=== PATIENT | female | born 1980 | race Caucasian/White ===

== ENCOUNTER 2017-05-11 18:12 | Emergency (ER) | payer BC, SELFPAY ==
[2017-05-11 18:18] VITALS: BP 118/79; PULSE 81; RESP 18; TEMP 36.5; O2SAT 95; BMI 66.7
--- NOTE | 2017-05-11 18:31 | CT_ITS ---
CT head/brain wo con : CT HEAD WITHOUT CONTRAST CT BONE WINDOWS Ordering Physician: Lizandro Navarro MD Patient Age: 37 years: Female HISTORY:Left arm weakness and tingling 1 hour. The T. PROCEDURE: Routine axial images through the head without contrast performed with brain and bone windows reviewed. CT BRAIN WITHOUT CONTRAST- No previous studies for comparison No acute intracranial findings. No hemorrhage or mass or subdural collection. The ventricles and basal cisterns appear satisfactory. Celeste and white matter patterns satisfactory. The posterior fossa appear satisfactory and unremarkable. CT BONE WINDOWS:The skull is intact. The visualized portions of the paranasal sinuses and mastoid air cells and middle ear in IACs are unremarkable. Critical result called to [facility] staff on 05/11/2017 6:48 PM. IMPRESSION: No acute intracranial findings. No significant intracranial findings.
--- NOTE | 2017-05-11 18:57 | HMH.EDNEU ---
ED Disposition Clinical Impression: Tingling of left upper extremity Disposition: Home, Self-Care Condition on Discharge: Fair Additional Instructions: 1- to see Angelo at 9:00 Am for a 2 d Echo with contrast study to r/o PFO. 2- see Dr Jonny cheng in AM for an outpatien tMRI. 3- take a daily 81mg aspirin. 4- return if needed for any new sx. Referrals: Jonny Cheng [Primary Care Provider] - - Critical Care Critical Care Time: No Attestation: On 05/11/17, the high probability of a clinically significant, sudden or life threatening deterioration of the following system(s) required my full and direct attention, intervention and personal management. The time I documented below is in addition to time spent performing reported procedures but includes the following listed in this critical care notation. Medical Decision Making - Medical Records Medical records reviewed: Yes: I reviewed the patient's medical records. Vital Signs: 05/11/17 18:18 Temperature 97.7 F Temperature Source Oral Pulse Rate [Right Radial] 81 Respiratory Rate 18 Blood Pressure [Right Arm] 118/79 Blood Pressure Mean [Right Arm] 92 Blood Pressure Source [Right Arm] Automatic Cuff Blood Pressure Position [Right Arm] Sitting 02 Sat by Pulse Oximetry 95 Oxygen Delivery Method Room Air - Lab Data Lab results reviewed: Yes: I reviewed the patient's lab results. Lab Results 05/11/17 19:20: WBC 9.1, RBC 4.87, Hgb 14.6, Hct 42.3, MCV 86.9, MCH 29.9, MCHC 34.4, RDW 12.1, Plt Count 323, MPV 6.9 L, Neut % (Auto) 74.5, Lymph % (Auto) 17.5, [place] % (Auto) 4.9, Eos % (Auto) 2.5, Baso % (Auto) 0.5, Neut # (Auto) 6.8, Lymph # (Auto) 1.6, [place] # (Auto) 0.5, Eos # (Auto) 0.2, Baso # (Auto) 0.0 05/11/17 19:20: Sodium 137, Potassium 3.9, Chloride 103, Carbon Dioxide 27, Anion Gap 10.9, BUN 15, Creatinine 0.69, Estimated Creat Clear 99, Estimated GFR 95, Est GFR ( Amer) 115, Glucose 110 H, Calcium 9.0, Total Bilirubin 0.3, AST 14 L, ALT 31, Alkaline Phosphatase 80, Total Creatine Kinase 65, CK-MB (CK-2) < 0.5, CK-MB (CK-2) Rel Index 0.8, Troponin I < 0.02, Total Protein 7.8, Albumin 4.1, Globulin 3.7 H, Albumin/Globulin Ratio 1.1, TSH 1.59 05/11/17 19:20: D-Dimer 115 Result diagrams: 05/11/17 19:20 05/11/17 19:20 Orders (Tests/Meds): ED MEDICATIONS Discontinued Medications Generic Name Dose Route Start Last Admin Trade Name Freq PRN Reason Stop Dose Admin Aspirin 325 mg 05/11/17 19:20 05/11/17 19:33 Aspirin Ec 325mg Tablet PO 05/11/17 19:21 325 mg ONCE ONE Administration ORDERS Category Date Time Status EKG Request [ECG Request by /Kiersten] Stat Y 05/11/17 19:05 Ordered - CT Data CT Scan: Head Time Received: 21:[address] Reviewed: Yes: I have viewed the radiologist's interpretation Preliminary Findings: Normal/NAD Findings Narrative: IMPRESSION: No acute intracranial findings. No significant intracranial findings. - ECG Data Tracing #1 Normal sinus rhythm 73/min normal P-wave T-wave and QRS complex no acute finding. ECG initial impression date: 05/11/17 ECG initial impression time: 19:04 - Rod Inquiry Pt receiving controlled substance: No Rod was queried for this patient: No Medical Decision Making Narrative: I had a extensive discussion with the patient and her about her history, examination, CT head, and laboratory findings. [address] Castillo from the [facility] about her symptoms. Although it seems to be more of a peripheral nerve symptoms but she recommended outpatient workup. [address] Em regarding PFO for 2D echo study, he advised that she can come at 9:00 in the morning and see his physician gift shop assistant 9 AM and obtain 2D echo. I spoke with the patient about the her need to be in charge of her health, she will contact her primary care physician Dr. Jonny Cheng and obtain a brain MRI, she would be here tomorrow at 9 AM for
--- NOTE | 2017-05-11 19:01 | ED_ITS ---
ED Disposition Clinical Impression: Tingling of left upper extremity Disposition: Home, Self-Care Condition on Discharge: Fair Additional Instructions: 1- to see Angelo at 9:00 Am for a 2 d Echo with contrast study to r/o PFO. 2- see Dr Jonny cheng in AM for an outpatien tMRI. 3- take a daily 81mg aspirin. 4- return if needed for any new sx. Referrals: Jonny Cheng [Primary Care Provider] - - Critical Care Critical Care Time: No Attestation: On 05/11/17, the high probability of a clinically significant, sudden or life threatening deterioration of the following system(s) required my full and direct attention, intervention and personal management. The time I documented below is in addition to time spent performing reported procedures but includes the following listed in this critical care notation. Medical Decision Making - Medical Records Medical records reviewed: Yes: I reviewed the patient's medical records. Vital Signs: 05/11/17 18:18 Temperature 97.7 F Temperature Source Oral Pulse Rate [Right Radial] 81 Respiratory Rate 18 Blood Pressure [Right Arm] 118/79 Blood Pressure Mean [Right Arm] 92 Blood Pressure Source [Right Arm] Automatic Cuff Blood Pressure Position [Right Arm] Sitting 02 Sat by Pulse Oximetry 95 Oxygen Delivery Method Room Air - Lab Data Lab results reviewed: Yes: I reviewed the patient's lab results. Lab Results 05/11/17 19:20: WBC 9.1, RBC 4.87, Hgb 14.6, Hct 42.3, MCV 86.9, MCH 29.9, MCHC 34.4, RDW 12.1, Plt Count 323, MPV 6.9 L, Neut % (Auto) 74.5, Lymph % (Auto) 17.5, [place] % (Auto) 4.9, Eos % (Auto) 2.5, Baso % (Auto) 0.5, Neut # (Auto) 6.8 , Lymph # (Auto) 1.6, [place] # (Auto) 0.5, Eos # (Auto) 0.2, Baso # (Auto) 0.0 05/11/17 19:20: Sodium 137, Potassium 3.9, Chloride 103, Carbon Dioxide 27, Anion Gap 10.9, BUN 15, Creatinine 0.69, Estimated Creat Clear 99, Estimated GFR 95, Est GFR ( Amer) 115, Glucose 110 H, Calcium 9.0, Total Bilirubin 0.3, AST 14 L, ALT 31, Alkaline Phosphatase 80, Total Creatine Kinase 65, CK-MB (CK-2) < 0.5, CK-MB (CK-2) Rel Index 0.8, Troponin I < 0.02, Total Protein 7.8, Albumin 4.1, Globulin 3.7 H, Albumin/Globulin Ratio 1.1, TSH 1.59 05/11/17 19:20: D-Dimer 115 Result diagrams: 05/11/17 19:20 05/11/17 19:20 Orders (Tests/Meds): ED MEDICATIONS Discontinued Medications Generic Name Dose Route Start Last Admin Trade Name Freq PRN Reason Stop Dose Admin Aspirin 325 mg 05/11/17 19:20 05/11/17 19:33 Aspirin Ec 325mg Tablet PO 05/11/17 19:21 325 mg ONCE ONE Administration ORDERS Category Date Time Status EKG Request [ECG Request by /Kiersten] Stat Y 05/11/17 19:05 Ordered - CT Data CT Scan: Head Time Received: 21:[address] Reviewed: Yes: I have viewed the radiologist's interpretation Preliminary Findings: Normal/NAD Findings Narrative: IMPRESSION: No acute intracranial findings. No significant intracranial findings. - ECG Data Tracing #1 Normal sinus rhythm 73/min normal P-wave T-wave and QRS complex no acute finding. ECG initial impression date: 05/11/17 ECG initial impression time: 19:04 - Rod Inquiry Pt receiving controlled substance: No Rod was queried for this patient: No Medical Decision Making Narrative: I had a extensive discussion wi
[2017-05-11 19:45] LABS: Basophils % 0.5 % (0.1-2.0); Eosinophils # 0.2 K/mm3 (0.0-0.4); Eosinophils % 2.5 % (0.1-12.0); Hematocrit 42.3 % (37.0-47.0); Hemoglobin 14.6 g/dL (12.2-16.2); Lymphocytes # 1.6 K/mm3 (0.7-4.5); Lymphocytes % 17.5 K/mm3 (10-50); Mean Corpuscular HGB Conc 34.4 g/dL (31.8-35.4); Mean Corpuscular Hemoglobin 29.9 pg (27.0-31.2); Mean Corpuscular Volume 86.9 fl (81-99); Mean Platelet Volume 6.9 fl (7.4-10.4); Monocytes # 0.5 K/mm3 (0.1-1.0); Monocytes % 4.9 % (1.7-9.3); Neutrophils # 6.8 K/mm3 (1.8-7.8); Neutrophils % 74.5 % (37.0-80.0); Platelet Count 323 K/mm3 (142-424); Red Blood Count 4.87 M/mm3 (4.20-5.40); Red Cell Distribution Width 12.1 % (11.5-17.5); White Blood Count 9.1 K/mm3 (4.8-10.8)
[2017-05-11 19:54] LABS: Alanine Aminotransferase 31 U/L (12-78); Albumin Level 4.1 gm/dL (3.4-5.0); Albumin/Globulin Ratio 1.1 (1.1-1.8); Alkaline Phosphatase 80 U/L (46-116); Anion Gap 10.9 mEq/L (5-15); Aspartate Amino Transferase 14 U/L (15-37); Bilirubin,Total 0.3 mg/dL (0.2-1.0); Blood Urea Nitrogen 15 mg/dL (7-18); Carbon Dioxide 27 mmol/L (21.0-32.0); Chloride 103 mmol/L (98-107); Creatine Kinase 65 U/L (26-192); Creatinine Clearance Estimated 99 mL/min (0-300); Creatinine,Serum 0.69 mg/dL (0.55-1.02); Estimated Glomerular Filt Rate 95 ml/min (>60); GFR (African American) 115 ML/MIN (>60); Globulin 3.7 gm/dl (1.3-3.2); Glucose 110 mg/dL (74-106); Potassium 3.9 mmoL/L (3.5-5.1); Sodium 137 mmol/L (136-145); Thyroid Stimulating Hormone 1.59 uIU/ml (0.358-3.740); Total Protein,Serum 7.8 gm/dL (6.4-8.2); Troponin I < 0.02 ng/ml (0.00-0.06)
[2017-05-11 19:56] LABS: CKMB Relative Index 0.8 U/L (0-4.0); Creatine Kinase MB < 0.5 mg/ml (0.0-3.6)
[2017-05-11 20:07] LABS: D-Dimer 115 (0-400)
[2017-05-11 21:37] VITALS: BP 130/74; PULSE 82; RESP 16; TEMP 37
== END 2017-05-11 21:37 | disposition home or self-care (01) ==
PROVIDERS: Emergency Provider Emergency Medicine; PCP Family Medicine
DX: R20.2 Paresthesia of skin (principal); R53.1 Weakness; Z88.0 Allergy status to penicillin
CPT/HCPCS: 36415; 70450; 80053; 82550; 82553; 84443; 84484; 85025; 85378; 93005; 93041; 99283

== ENCOUNTER → 2020-12-20 12:50 | Outpatient (CLI) | payer BC, SELFPAY ==
--- NOTE | 2020-12-20 12:53 | MM_ITS ---
PROCEDURE INFORMATION: Exam: MG Bilateral Screening 3D Mammography Exam date and time: 12/20/2020 12:53 PM Age: 40 years old Clinical indication: Encounter for screening mammogram for malignant neoplasm of breast TECHNIQUE: Imaging protocol: Bilateral screening tomosynthesis and 2D mammography including computer-aided detection (CAD) when performed. COMPARISON: No relevant prior studies available. FINDINGS: MAMMOGRAPHY: Breast composition: The breast tissue is composed of scattered areas of fibroglandular density. Mass: None. Architectural distortion: None. Calcifications: No suspicious calcifications. Asymmetric density: None. Skin thickening: None. Axillary adenopathy: None. IMPRESSION: No mammographic evidence of malignancy. Annual screening is recommended unless otherwise clinically indicated. ASSESSMENT: BI-RADS Category 1: Negative
== END ==
PROVIDERS: PCP Family Medicine; Visit Provider Obstetrics & Gynecology Gynecology
DX: Z12.31 Encounter for screening mammogram for malignant neoplasm of breast (principal)
CPT/HCPCS: 77063; 77067

== ENCOUNTER → 2021-02-26 10:57 | Outpatient (CLI) | payer BC, SELFPAY | PROVIDERS: PCP Family Medicine; Visit Provider Nurse Practitioner | DX: Z20.822 Contact with and (suspected) exposure to COVID-19 (principal) | CPT/HCPCS: C9803; U0003; U0005 ==

== ENCOUNTER 2021-04-15 11:17 | Emergency (ER) | payer BC, SELFPAY ==
[2021-04-15 14:20] VITALS: BP 140/91; PULSE 71; RESP 18; TEMP 36.6; O2SAT 100; BMI 28.8
--- NOTE | 2021-04-15 14:25 | HMH.EDUTC ---
[facility] [place] Clinical Impression: Viral syndrome Disposition: Home, Self-Care Condition on Discharge: Good Instructions: DI for Viral Syndrome, DI for COVID-19 (Suspected or Confirmed ) Additional Instructions: *Monitor Temp, Over the counter Motrin or Tylenol as directed/as needed Tylenol every 4 hours and Motrin every 6 hours (as long as your family doctor has told you that you can take it) for fever or pain. and straight to ER if unable to lower temp less than 101.0 after medication given *Warm salt water gargles may help to soothe the throat *Throat Lozenges *Warm fluids like tea with honey may help to soothe the throat *Sleep elevated *Humidifier/Vaporizer Follow up IMMEDIATELY for new or worsening symptoms or no Noticeable improvement over the next 48-72 hours. 911 for difficulty breathing or swallowing You were tested for today for COVID19 your test result should be back in the next 24-48 hours, you may check your results on the [facility] Portal if you have trouble logging on you may call [employer] support for assistance You was given a handout with instructions for Self Quarantine and Self isolation for while you wait on test results and what to do if they are positive If you are positive the Health Dept will be contacting you also Make sure to take your Vitamins Vit. C Vit D and Zinc if you can take them Referrals: Haroon Proctor MD [Primary Care Provider] - As needed Forms: Work/School Release Medical Decision Making - Rod Inquiry Pt receiving controlled substance: No Rod was queried for this patient: No Vital Signs: 04/15/21 14:20 Temperature 98 F Temperature Source Oral Pulse Rate [Left] 71 Respiratory Rate 18 Blood Pressure [Right Arm] 140/91 H Blood Pressure Mean [Right Arm] 107 02 Sat by Pulse Oximetry 100 Orders (Tests/Meds): ORDERS Category Date Time Status Covid-19 Nasal PCR ([facility]) Routine Lab 04/15/21 14:00 Ordered [facility] [place] - General Stated complaint: covid test, sore throat, h/a Time Seen by Provider: 04/15/21 14:25 Mode of Arrival: Ambulatory Source of Information: Patient Limitations: No Limitations Description of Symptoms (Recalled from Triage Doc. 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 States that she has been feeling achy, chills and headache and scratchy throat on Friday so she came in wanting to get tested for COVID - Related Data Home Medications Medication Instructions Recorded Confirmed Citalopram Hydrobromide [Celexa 40 mg PO DAILY 05/11/17 05/11/17 40mg Tablet] Allergies Allergy/AdvReac Type Severity Reaction Status Date / Time Penicillins Allergy Verified 05/11/17 18:25 - Worker's Comp Is this a Worker's Comp case?: No [facility] History - Hepatitis A Screen Drug use history?: No High risk sexual behaviors?: No History of sexually transmitted infection?: No Currently employed?: No Childcare worker?: No Do you have indoor plumbing?: Yes Do you have electricity?: Yes Attestation statement:: This patient has been screened for Hepatitis A risk factors. I have reviewed the patient's past medical history: Yes - Social History Smoking Status: Never smoker Alcohol Intake: never ROS Obtained: Yes All systems reviewed & no additional complaints, Yes Systems reviewed as appropriate & no additional complaints - Constitutional Constitutional: Reports system reviewed and no additional complaints, except as docu, Reports body ache, Reports chills, Reports fever(s), Reports headache(s) - ENT Ears, Nose, Mouth, and Throat: Reports system reviewed
[2021-04-15 14:50] VITALS: BP 140/90; PULSE 71; RESP 18; TEMP 36.6
== END 2021-04-15 14:51 | disposition home or self-care (01) ==
PROVIDERS: Emergency Provider Nurse Practitioner; PCP Family Medicine
DX: B34.9 Viral infection, unspecified (principal); Z20.822 Contact with and (suspected) exposure to COVID-19
CPT/HCPCS: 99202; C9803; G0463; U0003; U0005

== ENCOUNTER → 2021-04-17 13:23 | Outpatient (CLI) | payer BC, SELFPAY | PROVIDERS: PCP Family Medicine; Visit Provider Nurse Practitioner | DX: Z20.822 Contact with and (suspected) exposure to COVID-19 (principal) | CPT/HCPCS: C9803; U0003; U0005 ==

== ENCOUNTER → 2021-04-20 16:54 | Outpatient (CLI) | payer BC, SELFPAY | PROVIDERS: Visit Provider Nurse Practitioner | DX: U07.1 COVID-19 (principal) | CPT/HCPCS: C9803; U0003; U0005 ==

== ENCOUNTER → 2022-04-19 13:12 | Outpatient (CLI) | payer BC, SELFPAY ==
--- NOTE | 2022-04-19 13:20 | MM_ITS ---
PROCEDURE INFORMATION: Exam: MG Bilateral Screening 3D Mammography Exam date and time: 04/19/2022 1:25 PM Age: 42 years old Clinical indication: Screening. No family history of breast cancer. TECHNIQUE: Imaging protocol: Bilateral Screening tomosynthesis and 2D mammography including computer-aided detection (CAD) when performed. COMPARISON: MG MM DIG SCREENING MAMM BI W/CAD 12/20/2020 12:55 PM FINDINGS: MAMMOGRAPHY: Breast composition: There are scattered areas of fibroglandular density. Mass: None. Architectural distortion: None. Calcifications: No suspicious calcifications. Asymmetric density: None. Skin thickening: None. Axillary adenopathy: None. IMPRESSION: No mammographic evidence of malignancy. Annual screening is recommended unless otherwise clinically indicated. ASSESSMENT: BI-RADS Category 1: Negative
== END ==
PROVIDERS: Visit Provider Obstetrics & Gynecology Gynecology
DX: Z12.31 Encounter for screening mammogram for malignant neoplasm of breast (principal)
CPT/HCPCS: 77063; 77067

== ENCOUNTER 2023-09-22 12:57 | Outpatient (CLI) | payer BC, SELFPAY ==
--- NOTE | 2023-09-22 13:01 | MM_ITS ---
PROCEDURE INFORMATION: Exam: MG Bilateral Screening 3D Mammography Exam date and time: 09/22/2023 12:45 PM Age: 43 years old Clinical indication: Screening. No family history of breast cancer. TECHNIQUE: Imaging protocol: Bilateral Screening tomosynthesis and 2D mammography including computer-aided detection (CAD) when performed. COMPARISON: 1. MG MM DIG SCREENING MAMM BI W/CAD 04/19/2022 1:25 PM 2. MG MM DIG SCREENING MAMM BI W/CAD 12/20/2020 12:55 PM FINDINGS: MAMMOGRAPHY: Breast composition: There are scattered areas of fibroglandular density. Mass: None. Architectural distortion: None. Calcifications: No suspicious calcifications. Asymmetric density: None. Skin thickening: None. Axillary adenopathy: None. IMPRESSION: No mammographic evidence of malignancy. Annual screening is recommended unless otherwise clinically indicated. ASSESSMENT: BI-RADS Category 1: Negative
== END 2023-09-22 23:59 | disposition home or self-care (01) ==
LOC: RAD 12:58
PROVIDERS: PCP Obstetrics & Gynecology Gynecology; Visit Provider Obstetrics & Gynecology Gynecology
DX: Z12.31 Encounter for screening mammogram for malignant neoplasm of breast (principal)
CPT/HCPCS: 77063; 77067

== ENCOUNTER 2024-10-27 15:55 | Outpatient (CLI) | payer BC, SELFPAY ==
--- OUTSIDE RECORDS SUMMARY | 2024-10-27 15:58 | XMS_ITS | Clinical Summary ---
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 30 tablet 11/21/2019 Active Active Problems Problem Noted Date Diagnosed Date Dysthymia 05/12/2017 Family History Medical History Relation Name Comments Fibromyalgia Mother Cancer Paternal Uncle Relation Name Status Comments Mother Paternal Uncle Social History Tobacco Use Types Packs/Day Years Used Date Smoking Tobacco: Former Cigarettes Smokeless Tobacco: Never Alcohol Use Standard Drinks/Week Comments No 0 (1 standard drink = 0.6 oz pur e alcohol) Abuse Screen Answer Date Recorded Unsafe at Home or Work/School Not on file Feels Threatened by Someone? Not on file 12/2022 Does Anyone Keep You from Co ntacting Others or Doint Things Outside the Home? Not on file 12/31/2022 Physical Sign of Abuse Present Not on file 1 Housing Stability Answer Date Recorded Current Living Arrangements Not on file 12/22 Potentially Unsafe Housing Conditions Not on romulo e 12/31/2022 Family and Community Support Answer Moo e Recorded Help with Day-to-Day Activities Not on file 12/31/2022 Lonely or Isolated Not on file 12/31/2022 Employment Answer Date Recorded Do you want help finding or keeping work or a kishore b? Not on file 12/31/2022 Disabilities Answer Date Recorded Concentrating, Remembering, or Making Decisions Difficulty Not on file 12/31/2022 Doing Errands Independently Difficulty Not on fi le 12/31/2022 Education Answer Date Recorded Help with school or training? Not on file Preferred Language Not on file 12/31/2022 Comments Unknown Sex and Gender Information Value Date Recorded Sex Assigned at Not on file Legal Sex Female 1:41 PM EDT Gender Identity Not on file Sexual Orientation Not on file Last Filed Vital Signs Vital Sign Reading Time Taken Comments Blood Pressure 118/72 10/16/2018 12:15 PM EDT Pulse 89 10/16/2018 12:15 PM EDT Temperature 36.7 C (98.1 F) 10/16/2018 12:15 PM EDT Respiratory Rate 16 10/16/2018 12:15 PM EDT Oxygen Saturation 100% 10/16/2018 12:15 PM EDT Inhaled Oxygen Concentration - - Weight 66.7 kg (147 lb) 10/16/2018 12:15 PM EDT Height 165.1 cm (5' 5 ) 05/12/2017 4:36 PM EST Body Mass Index 24.46 05/12/2017 4:36 PM EST Plan of Treatment Health Maintenance Due Date Last Done Comments Annual Gynecologic Pelvic an d Breast Exam 1979 TDAP/TD VACCINES (1 - Tdap) 1998 ANNUAL PHYSICAL 07/21/2015 MAMMOGRAM 12/20/2022 12/20/2020 COVID-19 Vaccine ( - 2023-2 5 season) 2023 COLOGUARD 02/16/2024 COLON CANCER SCREENING 5 YEA R SIGMOIDOSCOPY 02/16/2024 COLONOSCOPY 02/16/2024 COLORECTAL CANCER SCREENING 02/16/2024 CT COLONOGRAPHY 02/16/2024 FECAL OCCULT BLOOD TEST 02/16/2024 FIT Testing (1 year) 02/16/2024 INFLUENZA VACCINE 12/22/2024 HEPATITIS C SCREENING Completed 10/31/2013 Pneumococcal Vaccine 0-49 Aged Out No longer eligible based on patient's age to complete this topic Procedures Procedure Name Priority Date/Time Associated Diagnosis Comments SCANNED - MAMMO 12/20/2020 HEPATITIS PANEL, ACUTE Routine 10/31/2013 11:44 AM EDT from Last 3 Months or Most Recently Relevant to Health Maintenance Results * SCANNED - MAMMO (12/20/2020) Anatomical Region Laterality Modality Other Jonny Au MD CHART REVIEW TABS Final Resu lt * Hepatitis panel, acute (10/31/2013 11:44 AM EDT) Hepatitis B Surface Ag NonReactive NONREACTIVE [facility] Comment: DF by IF @ 10/31/2013 13:52 TEST INFORMATION: Hepatitis B Surface Antigen The intended use of this Hepatitis B Surface Antigen assay is for clinical diagnosis only. Hep A IgM NonReactive NONREACTIVE [facility] Hep B Core IgM NonReactive NONREACTIVE [facility] Comment: DF by IF @ 10/31/2013 13:52 TEST INFORMATION: Hepatitis B Core Antibody, IgM The intended use of this Hepatitis B Core Antibody, IgM assay is for clinical diagnosis only. Hep C Virus Ab NonReactive NONREACTIVE [facility] Comment: DF by IF @ 10/31/2013 13:52 The signal to cutoff ratio (S/C) for the Hepatitis C antibodies is: Greater Than or Equal to 11.0 TEST INFORMATION: Hepatitis C Virus Antibody This test is performed using chemiluminescent immunoassay (PAOLO). Anti-HCV Signal Cutoff (S/C) Ratios (PAOLO): Less than 0.8 ................. NonReactive 0.80 to 1.00 .................. Equivocal Greater than 1.00 ............. Reactive This assay is intended for clinical diagnosis only. Blood specimen (specimen) 10/31/2013 11:44 AM EDT Narrative [facility] - 10/31/2013 1:52 PM EDT Specimen Type: Blood Nicko Welch MD LAB BLOOD ORDERABLES Final Result [facility] [place] [address], from Last 3 Months or Most Recently Relevant to Health Maintenance Insurance [facility] PPO Care Teams Metal Punch Press Operator Relationship Specialty Start Date End Date Jonny Au MD [facility] [place] [address] PCP - General 11/03/14
--- NOTE | 2024-10-27 16:04 | MM_ITS ---
PROCEDURE INFORMATION: Exam: MG Bilateral Screening 3D Mammography Exam date and time: 10/27/2024 4:03 PM Age: 44 years old Clinical indication: Screening. No family history of breast cancer. TECHNIQUE: Imaging protocol: Bilateral Screening tomosynthesis and 2D mammography including computer-aided detection (CAD) when performed. COMPARISON: 1. MG MM DIG SCREENING MAMM BI W/CAD 09/22/2023 12:45 PM 2. MG MM DIG SCREENING MAMM BI W/CAD 04/19/2022 1:25 PM 3. MG MM DIG SCREENING MAMM BI W/CAD 12/20/2020 12:55 PM FINDINGS: MAMMOGRAPHY: Breast composition: There are scattered areas of fibroglandular density. Mass: None. Architectural distortion: None. Calcifications: No suspicious calcifications. Asymmetric density: None. Skin thickening: None. Axillary adenopathy: None. IMPRESSION: No mammographic evidence of malignancy. Annual screening is recommended unless otherwise clinically indicated. ASSESSMENT: BI-RADS Category 1: Negative.
== END 2024-10-27 23:59 | disposition home or self-care (01) ==
LOC: RAD 15:56
PROVIDERS: PCP Nurse Practitioner; Visit Provider Nurse Practitioner
DX: Z12.31 Encounter for screening mammogram for malignant neoplasm of breast (principal); R92.323 Mammographic fibroglandular density, bilateral breasts
CPT/HCPCS: 77063; 77067